=== PATIENT | female | born 1990 | race Hispanic/Latino ===

== ENCOUNTER 2016-05-15 11:32 | Emergency (ER) | payer OTHER ==
[~2016-05-15] VITALS: Ht 160 cm; Wt 57.7 kg
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
[2016-05-15 11:37] VITALS: BP 111/79; PULSE 77; RESP 15; O2SAT 100
[2016-05-15] MEDS ORDERED: Ketorolac 30 mg/mL 2 mL Inj IM ONE (12:00)
[2016-05-15] MEDS ORDERED: MetoCLOpramide 5 mg/mL 2 mL Inj IM ONE (12:00)
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
[2016-05-15] MEDS ORDERED: HYDR-4003 PO (14:27)
[2016-05-15 14:32] VITALS: BP 112/74; PULSE 71; RESP 16; O2SAT 100
== END 2016-05-15 14:33 | disposition home or self-care (01) ==
LOC: SED 11:32 → EDBD 11:32 → SED 14:33
DX: S16.1XXA Strain of muscle, fascia and tendon at neck level, initial encounter (principal); S29.019A Strain of muscle and tendon of unspecified wall of thorax, initial encounter; S70.01XA Contusion of right hip, initial encounter; V48.0XXA Car driver injured in noncollision transport accident in nontraffic accident, initial encounter; Y93.89 Activity, other specified; Y99.8 Other external cause status; Y92.410 Unspecified street and highway as the place of occurrence of the external cause
CPT/HCPCS: 70450; 72125; 72146; 81025; 96372; 99285; J1885; J2765